=== PATIENT | female | born 1935 | race Caucasian/White ===

== ENCOUNTER 2018-11-23 09:54 | Emergency (ER) | payer MEDICARE, BC ==
[~2018-11-23] VITALS: Ht 165.1 cm; Wt 88.0 kg
[2018-11-23 11:06] LABS: HEMATOCRIT 38.1 % (37.0-47.0); HEMOGLOBIN 12.2 g/dl (12.0-16.0); IMMATURE GRANULOCYTES 0.7 % (0.0-5.0); MEAN CELL VOLUME 86.8 fL CALC (80.0-100.0); MEAN CORPUSCULAR HGB 27.8 pG CALC (26.0-32.0); NEUT# 5.51 thou/uL (2.00-7.15); RED BLOOD COUNT 4.39 mill/uL (4.20-5.60); RED CELL DISTRI WIDTH 15.4 % (11.5-15.5)
[2018-11-23 11:22] LABS: ALKALINE PHOSPHATASE 67 u/l (38-126); ANION GAP 14 (6-22 (CALC)); BILIRUBIN, TOTAL 0.9 mg/dL (0.0-1.4); BUN 15 mg/dL (8-23); BUN/CREATININE RATIO 11 (12-20 (CALC)); CARBON DIOXIDE 26 mmol/l (22-30); CHLORIDE 97 mmol/l (95-108); CREATININE 1.3 mg/dL (0.5-1.0); GFR 39 ML/MIN (>=60 (CALC)); GFR FOR AFR.AMER. 47 ML/MIN (>=60 (CALC)); SGOT/AST 23 u/l (9-36); SODIUM 134 mmol/l (137-146); TOTAL PROTEIN 6.9 g/dL (6.3-8.2)
[2018-11-23] MEDS ORDERED: FLEXERIL PO (13:21)
[2018-11-23] MEDS ORDERED: DELTASONE20 MG PO (13:21)
[2018-11-23] MEDS ORDERED: ULTRAM50 M1 PO (13:21)
[2018-11-23] MEDS ORDERED: DICLOFENAC50 MG PO (13:22)
[2018-11-23 13:36] VITALS: BP 108/54
== END 2018-11-23 14:02 | disposition home or self-care (01) ==
LOC: ED 09:54
PROVIDERS: Emergency Medicine
DX: M48.54XA Collapsed vertebra, not elsewhere classified, thoracic region, initial encounter for fracture (principal); M19.90 Unspecified osteoarthritis, unspecified site; R06.02 Shortness of breath

== ENCOUNTER → 2018-12-07 | Outpatient (REF) | payer MEDICARE, BC ==
[~2018-12-07] MED LIST: ALLOPURINOL100 MG PO; ASPIRIN81 MG PO; DELTASONE20 MG PO; DICLOFENAC50 MG PO; FLEXERIL PO; HYDROCO/APAP1 TA9 PO; METOLAZONE5 MG PO; METOPROL TAR25 MG PO; SIMVASTATIN40 MG PO; STOOL SOFTENER100 MG PO; ULTRAM50 M1 PO; VITAMIN E400 UNIT PO
== END | disposition home or self-care (01) ==
LOC: MRI 13:56
PROVIDERS: ATTEND Internal Medicine Geriatric Medicine
DX: M48.54XA Collapsed vertebra, not elsewhere classified, thoracic region, initial encounter for fracture (principal)

== ENCOUNTER 2018-12-10 11:58 | Inpatient (IN) | payer MEDICARE, BC ==
[~2018-12-10] VITALS: Ht 157.5 cm; Wt 85.0 kg
[~2018-12-10 11:58] MED LIST changes: -ALLOPURINOL100 MG PO; -ASPIRIN81 MG PO; -HYDROCO/APAP1 TA9 PO; -METOLAZONE5 MG PO; -METOPROL TAR25 MG PO; -SIMVASTATIN40 MG PO; -STOOL SOFTENER100 MG PO; -VITAMIN E400 UNIT PO
--- NOTE | 2018-12-10 11:58 | NUR ---
ARRIVES VIA EMS IN 07/19 PAIN TO LOW BACK PAIN. STATES NON SYNCOPAL FALL. DENIES LOC. RECENTLY DX WITH COMPRESSION FXS PER PMD
--- NOTE | 2018-12-10 12:15 | NUR ---
IV INITIATED AND LABS COLLECTED. PT REPORTS LOW BACK PAIN AFTER NON SYNCOPAL FALL LINE SUPPLY. PT DENIES ANY LOC AND REPORTS SHE WAS DIAGNOSED WITH A COMPRESSION FX TO L1. PT HAS BEEN ABLE TO AMBULATE WITH PAIN BEFORE FALL. PT REPORTS 10/10 PAIN UPON MOVEMENT. PT AWARE OF PLAN OF CARE AND WAIT TIME. CALL CLEMONS WITHIN REACH.
[2018-12-10] MEDS ORDERED: ASPIRIN81 MG PO (12:18)
--- NOTE | 2018-12-10 12:20 | NUR ---
PT MEDICATED PER ORDERED FOR 07/19 PAIN. PT INFOMRED STAFF THAT SHE TOOK 1 LORTAB SHE WAS LEAVING IN EMS. PT A&O X 3 SPEECH CLEAR.
[2018-12-10 12:30] LABS: HEMATOCRIT 41.3 % (37.0-47.0); HEMOGLOBIN 13.3 g/dl (12.0-16.0); IMMATURE GRANULOCYTES 0.6 % (0.0-5.0); MEAN CELL VOLUME 88.1 fL CALC (80.0-100.0); MEAN CORPUSCULAR HGB 28.4 pG CALC (26.0-32.0); MEAN CORPUSCULAR HGB CONC 32.2 g/L CALC (32.0-36.0); NEUT# 8.56 thou/uL (2.00-7.15); RED BLOOD COUNT 4.69 mill/uL (4.20-5.60); RED CELL DISTRI WIDTH 16.4 % (11.5-15.5)
[2018-12-10 12:47] LABS: CREATININE 1.5 mg/dL (0.5-1.0)
--- NOTE | 2018-12-10 13:00 | NUR ---
PT REPORTS CONTINUED 8/10 PAIN TO LOW BACK. MD NOTIFIED AND IS AT BEDSIDE TO DISCUSS PROBABLE ADMISSION.
--- NOTE | 2018-12-10 13:07 | NUR ---
PT MEDICATED PER ORDERED FOR 05/19 PAIN TO LOW BACK. FAMILY IS AT BEDSIDE. CALL CLEMONS WITHIN REACH.
[2018-12-10] MEDS ORDERED: SIMVASTATIN40 MG PO (13:13)
[2018-12-10] MEDS ORDERED: HYDROCO/APAP1 TA9 PO (13:13)
[2018-12-10] MEDS ORDERED: ALLOPURINOL100 MG PO (13:17)
[2018-12-10] MEDS ORDERED: METOPROL TAR25 MG PO (13:19)
[2018-12-10 13:20] LABS: URINE BILIRUBIN - DIPSTICK NEGATIVE (NEGATIVE); URINE BLOOD DIPSTICK LARGE (NEGATIVE); URINE COLOR YELLOW; URINE GLUCOSE - DIPSTICK NEGATIVE (NEGATIVE); URINE KETONE NEGATIVE (NEGATIVE); URINE LEUK ESTERASE TRACE (NEGATIVE); URINE NITRITE - DIPSTICK NEGATIVE (Negative); URINE PH 5.5 (4.5-8.0); URINE PROTEIN - DIPSTICK NEGATIVE (NEG-TRACE); URINE SPECIFIC GRAVITY <=1.005; URINE UROBILINOGEN - DIPSTICK 0.2 E.U./dL (0.2)
[2018-12-10] MEDS ORDERED: METOLAZONE5 MG PO (13:26)
[2018-12-10] MEDS ORDERED: STOOL SOFTENER100 MG PO (13:27)
[2018-12-10] MEDS ORDERED: VITAMIN E400 UNIT PO (13:27)
[2018-12-10 13:29] LABS: URINE RBC TNTC RBC/hpf (0-5); URINE SQUAMOUS EPITHELIAL CELL FEW EPI/hpf (0-FEW)
--- NOTE | 2018-12-10 13:32 | NUR ---
PT AND DAUGHTER IN LAW AWARE OF PENDING RESULTS AND WAIT TIME. CALL CLEMONS WITHIN REACH. PT DENIES ANY PAIN AT THIS TIME. CALL CLEMONS WITHIN REACH.
--- NOTE | 2018-12-10 13:46 | NUR ---
CALL PLACED TO DARIEL THOMAS IS UNABLE TO TAKE REPORT AT THIS TIME AND WILL CALL BACK.
--- NOTE | 2018-12-10 14:10 | NUR ---
PT AWARE OF PENDING WAIT TIME FOR TRANSPORT TO ROOM. PT DENIES ANY NEEDS AT THIS TIME. CALL CLEMONS WITHIN REACH.
--- NOTE | 2018-12-10 14:15 | NUR ---
CALL PLACED TO DARIEL, NURSE UNABLE TO TAKE REPORT AND WILL CALL BACK
--- NOTE | 2018-12-10 14:28 | NUR ---
PT REPORT TO LISA VIEIRA.
--- NOTE | 2018-12-10 14:35 | NUR ---
PT C/O ABD PAIN AND CRAMPING AND THE URGE TO URINATE. WICK REMAINS IN PLACE AND PT REPORTS SHE IS UNABLE TO URINATE. PT WAS STRAIGHT CATHED AND 800 MLS OF DARK URINE OBTAINED. LISA VIEIRA NOTIFIED.
--- NOTE | 2018-12-10 14:42 | NUR ---
Admission Note Report Given to: DARIEL Transported by: Wheelchair X Stretcher Transported with: X Nurse Transporter X Patent IV X O2 Rig Builder PT TO ROOM 280 IN STABLE CONDITION. CARE RELINQUISHED TO LISA VIEIRA.
[2018-12-10 14:55] VITALS: BP 131/66
--- NOTE | 2018-12-10 15:38 | NUR ---
REPORT RECEIVED FROM RIDDHI IN ED, PT ARRIVED ON UNIT @ 1446 VIA STRETCHER TRANSPORTED BY ED STAFF, TRANSFERRED TO BED WITH USE OF SLIDING BOARD. ALERT AND ORIENTED X 4, C/O ACHING PAIN TO MID BACK @ 3/10, O2 @ 2L VIA NC PLACE, ORIENTED TO ROOM AND CALL CLEMONS, FAMILY AT BEDSIDE, WILL CONTINUE TO MONITOR.
--- NOTE | 2018-12-10 17:11 | NUR ---
ISABEL CATHETER PLACED, 500 CC DARK RED BLOODY URINE DRAINED. DR BARBOZA HERE AT THIS TIME AND INFORMED OF CONDITION.
[2018-12-10 20:00] VITALS: BP 93/46
[2018-12-11 00:10] VITALS: BP 120/59
--- NOTE | 2018-12-11 00:30 | NUR ---
PATIENT RESTING IN BED-STILL NOT ABLE TO SLEEP EVEN WITH DILAUDID GIVEN. MEDICATED WITH LORTAB FOR PAIN AND WITH RESTORIL FOR SLEEP. SAFETY PRECAUTIONS REINFORCED. CALL LIGHT IN REACH. WILL CONT TO MONITOR.
[2018-12-11 04:15] VITALS: BP 94/55
[2018-12-11 04:43] LABS: HEMATOCRIT 36.5 % (37.0-47.0); HEMOGLOBIN 11.4 g/dl (12.0-16.0); IMMATURE GRANULOCYTES 0.4 % (0.0-5.0); MEAN CELL VOLUME 90.6 fL CALC (80.0-100.0); MEAN CORPUSCULAR HGB 28.3 pG CALC (26.0-32.0); MEAN CORPUSCULAR HGB CONC 31.2 g/L CALC (32.0-36.0); NEUT# 4.74 thou/uL (2.00-7.15); RED BLOOD COUNT 4.03 mill/uL (4.20-5.60); RED CELL DISTRI WIDTH 16.6 % (11.5-15.5)
[2018-12-11 05:15] LABS: BILIRUBIN, TOTAL 0.5 mg/dL (0.0-1.4); CREATININE 1.9 mg/dL (0.5-1.0); POTASSIUM 4.3 mmol/l (3.5-5.1)
[2018-12-11 05:23] LABS: TOTAL PROTEIN 5.2 g/dL (6.3-8.2)
--- NOTE | 2018-12-11 06:12 | NUR ---
DR. BARBOZA NOTIFIED OF HEMATURIA THROUGH THE NIGHT. NEW ORDER FOR PELVIC ULTRASOUND OBTAINED AND ORDERED. PATIENT RESTING IN BED, ISABEL IS PATENT WITH DARK INGRID URINE IN THE TUBING WITH SEDIMENT-NO CLOTS. NO COMPLAINTS AT THIS TIME. DECLINES ANY PAIN MEDS AT THIS TIME. IV SITE TO TO RIGHT AC INTACT WITH IVF PATENT AND INFUSING AT 75CC/HR. SITE REMAINS HEALTHY AT THIS TIME. CALL LIGHT IN REACH. WILL CONT TO MONITOR.
--- NOTE | 2018-12-11 07:22 | NUR ---
PATIENT RESTING IN BED AT THIS TIME-AWAKE ALERT AND ORIENTEDX3. PATIENT WITH IV SITE TO RIGHT AC ITH IVF D51/2NS PATENT AND INFUSING AT 75CC/HR. SITE APPEARS HEALTHY AT THIS TIME. ISABEL CATH PATENT AND DRAINING MAROON COLORED URINE WITH SEDIMENT-NO CLOTS. PATIENT STATES THAT THIS DOES HAPPEN TO HER. STATES THAT HER URINE WITH BE CLEAR YELLOW FOR DAYS AND THEN WILL BECOME BLOODY AND BACK AND FORTH. PATIENT DENIES ANY PAIN WITH URINATION. SAFETY PRECAUTIONS REINFORCED. CALL LIGHT IN REACH. WILL CONT TO MONITOR.
--- NOTE | 2018-12-11 07:44 | NUR ---
SHIFT CHANGE REPORT, PT AWAKE ALERT AND ORIENTED, DENIED PAIN/DISCOMFORT AT THIS TIME BUT STATED SHE DOES HAVE PAIN ON MOVEMENT. ISABEL IN PLACE WITH DARK RED BLOODY URINE WITHOUT CLOTS, ALL NEEDS ADDRESSED, CALL CLEMONS IN REACH.
[2018-12-11 09:22] VITALS: BP 105/50
--- NOTE | 2018-12-11 10:38 | NUR ---
INFORMED OF PROCEDURE, TRANSFERRED TO STRETCHER WITH ASSIST OF 3 STAFF, TRANSPORTED OFF UNIT AT THIS TIME TO CT.
--- NOTE | 2018-12-11 11:17 | NUR ---
RETURNED FROM CT AND SETTLED BCK IN BED, CALL KACI IN REACH.
[2018-12-11 15:00] VITALS: BP 103/61
--- NOTE | 2018-12-11 15:56 | NUR ---
RESTING IN BED, FAMILY MEMBERS VISITING, ALL NEEDS MET/ADDRESSED.
[2018-12-11 18:32] LABS: URINE BLOOD DIPSTICK LARGE (NEGATIVE); URINE GLUCOSE - DIPSTICK NEGATIVE (NEGATIVE); URINE KETONE TRACE mg/dL (NEGATIVE); URINE LEUK ESTERASE MODERATE (Negative); URINE NITRITE - DIPSTICK POSITIVE (Negative); URINE PH 6.5 (4.5-8.0); URINE PROTEIN - DIPSTICK >=300 mg/dL (NEG-TRACE)
[2018-12-11 18:33] LABS: URINE CLARITY TURBID; URINE COLOR BLOODY
[2018-12-11 18:35] LABS: URINE BILIRUBIN - DIPSTICK NEGATIVE (NEGATIVE); URINE RBC TNTC RBC/hpf (0-5); URINE SQUAMOUS EPITHELIAL CELL FEW EPI/hpf (0-FEW)
[2018-12-11 19:00] VITALS: BP 122/67
--- NOTE | 2018-12-11 20:30 | NUR ---
PATIENT RESTING IN BED AT THIS TIME-AWAKE ALERT AND ORIENTEDX3. PATIENT WITH IV SITE TO RIGHT AC INTACT WITH IVF D51/2NS PATENT AND INFUSING AT 75CC/HR. SITE APPEARS HEALTHY. ISABEL CATH PATENT AND DRAINING LIGHT PINK COLORED URINE IN THE TUBING WITH SOME SEDIMENT BUT NO CLOTS. ENCOURAGED PO FLUIDS AND HIGH FIBER DIET. MEDICATED FOR PAIN WITH LORTAB ORDERED. SAFETY PRECAUTIONS REINFORCED. CALL LIGHT IN REACH. WILL CONT TO MONITOR.
--- NOTE | 2018-12-11 23:40 | NUR ---
PATIENT RESTING IN BED- UNABLE TO SLEEP. MEDICATED WITH FLEXERIL 5MG PO ABD RESTORIL 15MG PO FOR SLEEP. IVF PATENT AND INFUSING AT 75CC/HR VIA RIGHT AC SITE. ISABEL PATENT AND STILL DRAINING PINK TINGED URINE. SAFETY PRECAUTIONS REINFORCED. CALL LIGHT IN REACH. WILL CONT TO MONITOR.
--- NOTE | 2018-12-12 01:00 | NUR ---
PATIENT CALLED FOR ASSIST. PATIENT C/O SEVERE BACK AND ABD CRAMPING-STATES THAT SHE THINKS SHE NEEDS TO HAVE BM. MAX ASSIST OF 2 TO TRANSFER FROM THE BED TO BSC-PASSING FLATUS BUT NO BM. ASSISTED BACK TO BED. PATIENT MEDICATED FOR 10/10 PAIN SCALE WITH DILAUDID 1MG IVP. SAFETY PRECAUTIONS REINFORCED. CALL LIGHT IN REACH. WILL CONT TO MONITOR.
--- NOTE | 2018-12-12 02:36 | NUR ---
PATIENT APPEARS SLEEPING AT THIS TIME WITH EYES CLOSED-RESP ARE EVEN AND UNLABORED. IVF PATENT AND INFUSING AT 75CC/HR. CALL LIGHT IN REACH. WILL CONT TO MONITOR.
[2018-12-12 04:02] VITALS: BP 100/62
--- NOTE | 2018-12-12 04:54 | NUR ---
PATIENT APPEARS SLEEPING AT THIS TIME-RESP EVEN AND UNLABORED. IVF PATENT AND INFUSING AT 75CC/HR. CALL LIGHT IN REACH. WILL CONT TO MONITOR.
[2018-12-12 07:48] VITALS: BP 104/65
--- NOTE | 2018-12-12 08:30 | NUR ---
ASSESSMENT DONE. RESP EVEN AND UNLABORED. PT IS A&O X3 . DENIES PAIN AT THIS TIME. D51/2NS 75ML/HR INFUSING WELL. ISABEL IS PATENT WITH PINK URINE AND NO BLOOD CLOTS NOTED. CALL LIGHT IN REACH. FAMILY IN ROOM.
--- NOTE | 2018-12-12 12:00 | NUR ---
FAMILY IS SETTING PT FOR LUNCH. PT DENIES ANY NEEDS AT THIS TIME. MAAME IS PATENT WITH DAVID URINE. CALL LIGHT IN REACH.
[2018-12-12 14:55] VITALS: BP 122/61
--- NOTE | 2018-12-12 16:00 | NUR ---
PT IS RESTING IN BED WITH NO S/S OF DISTRESS NOTED. PT DENIES ANY NEEDS AT THIS TIME. MAAME IS PATENT WITH A LIGHT BRIA URINE COLOR. CALL LIGHT IN REACH.
--- NOTE | 2018-12-12 18:50 | NUR ---
Discharge instructions given. Patient verbalizes understanding of same. Discharged in stable condition via Medical Transport to *Other with staff. All belongings sent with pt.
--- NOTE | 2018-12-12 19:43 | NUR ---
REPORT GIVEN TO RONALD STAPLETON FROM [facility]
== END 2018-12-12 19:15 | DRG 552 ==
LOC: ED 11:58 → ED-I 12:56 → ED 12:56 → MS2 12:59
PROVIDERS: Family Medicine; ADMIT Internal Medicine Geriatric Medicine; ATTEND Internal Medicine Geriatric Medicine
PROC: 0T9B70Z Drainage of Bladder with Drainage Device, Via Natural or Artificial Opening (ICD-10-PCS; principal; 2018-12-10)
DX: S32.010A Wedge compression fracture of first lumbar vertebra, initial encounter for closed fracture (principal); S22.060A Wedge compression fracture of T7-T8 vertebra, initial encounter for closed fracture; I25.10 Atherosclerotic heart disease of native coronary artery without angina pectoris; I10 Essential (primary) hypertension; E78.5 Hyperlipidemia, unspecified; R31.9 Hematuria, unspecified; M10.9 Gout, unspecified; W18.30XA Fall on same level, unspecified, initial encounter; Y92.009 Unspecified place in unspecified non-institutional (private) residence as the place of occurrence of the external cause
CPT/HCPCS: G0378

== ENCOUNTER 2019-02-16 06:41 | Day surgery (SDC) | payer MEDICARE, BC ==
[~2019-02-16 06:41] MED LIST changes: +ALLOPURINOL100 MG PO; +APAP325 MG PO; +ASPIRIN81 MG PO; +BOOST PO; +HYDROCO/APAP1 TA9 PO; +KEFLEX500 MG PO; +LASIX20 MG PO; +METOLAZONE5 MG PO; +METOPROL TAR25 MG PO; +MILK OF MAG30 ML/UDC PO; +MULTIVITAMIN AD1 TA1 PO; +MULTIVITAMIN PO; +ONDANSETRON4 MG PO; +POLYETHYLENE XX; +POT CHLORIDE10 ME5 PO; +RESTORIL15 M1 PO; +SIMVASTATIN40 MG PO; +STOOL SOFTENER100 MG PO; +VITAMIN E400 UNIT PO; +ZANTAC 7575 MG PO; +ZYVOX600 MG PO
[2019-02-16 10:01] VITALS: BP 101/59
[2019-02-16] MEDS ORDERED: PERCOCET 5/325M1 TAB PO (10:05)
== END 2019-02-16 10:20 | disposition home or self-care (01) ==
LOC: ORM 06:41
PROVIDERS: ATTEND Urology
PROC: 0TB48ZX Excision of Left Kidney Pelvis, Via Natural or Artificial Opening Endoscopic, Diagnostic (ICD-10-PCS; principal; 2019-02-16)
PROC: 0TB78ZX Excision of Left Ureter, Via Natural or Artificial Opening Endoscopic, Diagnostic (ICD-10-PCS; 2019-02-16)
PROC: 0T778DZ Dilation of Left Ureter with Intraluminal Device, Via Natural or Artificial Opening Endoscopic (ICD-10-PCS; 2019-02-16)
DX: C65.2 Malignant neoplasm of left renal pelvis (principal); R31.0 Gross hematuria; I11.0 Hypertensive heart disease with heart failure; I50.9 Heart failure, unspecified; Z95.5 Presence of coronary angioplasty implant and graft; Z87.891 Personal history of nicotine dependence
CPT/HCPCS: C1769; Q9967